=== PATIENT | male | born 1990 | race Caucasian/White ===

== ENCOUNTER 2023-08-04 12:44 | Emergency (ER) | payer OTHER, SELFPAY ==
[2023-08-04 12:57] VITALS: BP 135/86
[2023-08-04 13:26] LABS: INR 0.98; PT 12.8 Sec (11.4-14.6)
[2023-08-04 13:27] LABS: APTT 25.1 Sec (23.4-35.0)
[2023-08-04 13:37] LABS: ALT (SGPT) 58 U/L (0-50); AST (SGOT) 43 U/L (17-59); Albumin 4.8 g/dl (3.5-5.0); Alkaline Phosphatase 70 U/L (38-126); Blood Urea Nitrogen 15 mg/dl (9-20); Calcium 9.5 mg/dl (8.4-10.2); Carbon Dioxide 19 mmol/L (22-30); Chloride 102 mmol/L (98-107); Glucose 129 mg/dl (70-99); Potassium 3.5 mmol/L (3.5-5.1); Sodium 133 mmol/L (135-145); Total Bilirubin 0.7 mg/dl (0.2-1.3); Total Protein 7.4 g/dl (6.3-8.2); eGFR > 60.00
[2023-08-04 13:45] LABS: Troponin I < 0.012 ng/ml
[2023-08-04 14:05] LABS: TSH Reflex To Free T4 1.67 uIU/ml (0.47-4.68)
--- NOTE | 2023-08-04 15:44 | ED.GENMED ---
History of Present Illness
General
Chief Complaint: Heart Rate Problem
Time Seen by Provider: 08/04/23 15:44
Travel History
Have you had any contact with someone who has COVID-19?: No
Do you have any symptoms of coronavirus? Fever > 100 degrees, chills, cough, shortness of breath, sore throat, loss of taste or smell, muscle aches, or headache?: No
History of Present Illness
History of Present Illness:
HPI: The patient was working earlier today and had sensation of heart racing. His watch indicated that he was in A-fib�I did review this and it did not appear to be A-fib to me. He also reports some discomfort just distal to the left groin. He
had sensation of paresthesias in his arms earlier. He did have some associated anxiety as well.
EXAM:
GENERAL: Well appearing in no distress
HEENT: Moist oral mucosa
CARDIOVASCULAR: No murmurs, borderline tachycardic heart rate with regular rhythm, No chest wall tenderness
PULMONARY: No respiratory distress, breath sounds are clear and equal
ABDOMEN: Soft with no peritoneal signs, no tenderness
NEUROLOGIC: Excellent strength all extremities, no coordination deficits
PSYCHIATRIC: Appropriate mental status, normal insight and judgement, appears somewhat anxious
EXTREMITIES: Nontender, no edema, moves all extremities equally, no palpable masses or suggestion for DVT based on physical examination of the left lower extremity
SKIN: No rash, no lesions
ED COURSE:
4:15 PM: I initially evaluated patient
NUMBER AND COMPLEXITY OF PROBLEMS ADDRESSED AT THE ENCOUNTER
� Chronic conditions affecting care: Denies any past medical history
� Acute Exacerbation and/or Progression of Chronic Illness: This is an acute problem
� Differential Diagnosis includes: Anxiety, DVT unlikely, atrial fibrillation not seen on evaluation here thyroid disease, electrolyte abnormality
AMOUNT AND/OR COMPLEXITY OF DATA TO BE REVIEWED AND ANALYZED
� I performed an independent evaluation of and my interpretation is:
EKG: Sinus 103, normal axis, nonspecific ST abnormality, no old to compare QTc is [address]:
X-rays:
Laboratory Studies: Chemistries show a slightly low bicarb of 19, sodium 133, troponin negative, TSH normal, white count high at 13.0
Other:
� Review of other/old records: I look for old records but there is no old records to review in [facility]
� Clinical information was obtained by an independent historian: None needed
� Prescriptions/Medications Considered but not given:
� Further testing considered but not performed:
RISK OF COMPLICATIONS AND/OR MORBIDITY OR MORTALITY OF PATIENT MANAGEMENT
� Social determinants of health affecting care: Lives at home
� Discussion with other providers:
� Escalation of care including admission/observation vs risk of discharge considered: Favor more of an anxiety etiology of presentation as patient is persistently tachycardic and hypertensive. Will try one-time dose of Ativan as
the patient has a ride home. EKG monitoring showed no sign of atrial fibrillation. The patient appears somewhat improved on reassessment at 5:50 PM. Suspect component of anxiety
Phy Exam
Physical Exam
Physical Exam:
See HPI
Course
Orders/Labs/Results
Orders:
Orders
08/04/23 12:59
Electrocardiogram (*1) Urgent
Reason for Study: Heart Failure, Left
EKG- Treatment ONCE
08/04/23 13:07
Comprehensive Metabolic Panel Urgent
Protime/PTT Urgent
TSH Reflex To Free T4 Urgent
Troponin I Urgent
08/04/23 15:45
Add On- LAB Urgent
Tests Added?: cbc w/ diff
08/04/23 15:46
0.9% Sodium Chloride 1000 ml [Nss] 1,000 ml IV BOLUS
08/04/23 15:57
Complete Blood Count/With Diff Urgent
Comment: ADD ON
08/04/23 16:18
Lorazepam [Ativan] 1 mg IV NOW STA
US Periph Venous LOWER Ext LT Urgent
Comment:
Reason For Exam: L groin pain / tachycardia eval for DVT
Abnormal Lab Results
08/04/23 08/04/23
13:07 15:57
WBC 13.0 H 10^3/uL
(4.8-10.8)
MCH 31.6 H pg
(27.0-31.0)
MPV 11.1 H fL
(7.4-10.4)
Abs Immat Gran (auto) 0.1 H 10^3/uL
(0-0.05)
Absolute Neuts (auto) 11.0 H 10^3/uL
(1.4-6.5)
Absolute Lymphs (auto) 1.1 L 10^3/uL
(1.2-3.4)
Absolute Monos (auto) 0.8 H 10^3/uL
(0.1-0.6)
Neutrophils % 84.2 H %
(42.2-75.2)
Lymphocytes % 8.5 L %
(20.5-51.1)
Sodium 133 L mmol/L
(135-145)
Carbon Dioxide 19 L mmol/L
(22-30)
Glucose 129 H mg/dl
(70-99)
ALT 58 H U/L
(0-50)
08/04/23 15:57
08/04/23 13:07
Vital Signs
Initial and Last Documented VS:
Initial Vital Signs
Temp Pulse Resp BP Pulse Ox
98.6 F 109 18 135/86 100
08/04/23 12:57 08/04/23 12:57 08/04/23 12:57 08/04/23 12:57 08/04/23 12:57
Last Documented Vital Signs
Temp Pulse Resp BP Pulse Ox
98.6 F 109 18 135/86 100
08/04/23 12:57 08/04/23 12:57 08/04/23 12:57 08/04/23 12:57 08/04/23 12:57
*Critical Care Note
Total Time (30-74mins, 75-104mins- exclusive of procedures): Not Applicable
ED Attending Note
-
Portions of this chart may have been created with voice recognition software.� Occasional wrong word or��sound alike� substitutions may have occurred due to the inherent limitations of voice recognition software.
Discharge Plan
Departure
Patient Disposition: Home (Routine Discharge)
Date of Disposition: 08/04/23
Time of Disposition: 17:46
Patient with high blood pressure during this ER visit?: Yes
Discharge Problem:
Palpitations
Instructions: Palpitations (DC)
Referrals:
Edgardo Butler MD [Family Provider] -
Stevie Enriquez, [Active] - Follow up in 2-3 days
Activity Restrictions/Additional Instructions:
Your EKG shows no cardiac abnormality other than being slightly fast, thyroid testing and other basic blood work including cardiac numbers were normal. Ultrasound shows no sign of blood clot. I have given you the contact information of a local
events intern to follow-up with. For sleep, you could take [id number] Unisom/doxylamine.
Interventions
Interventions:
*Risk Screen - Suicide Last Done: 08/04/23 12:57
*General Assessment Last Done: 08/04/23 12:57
*Neglect/Abuse Screening Last Done: 08/04/23 12:57
*ED COVID-19 Vaccine History Last Done: 08/04/23 12:57
ED- Cardiac Assessment Last Done: 08/04/23 16:17
ED- Pulmonary Assessment Last Done: 08/04/23 16:17
[2023-08-04 16:00] VITALS: BP 170/79
[2023-08-04] MEDS: NSS 1000 IV (16:06)
[2023-08-04 16:19] LABS: % Basophils 0.3 % (0-2); % Eosinophils 0.1 % (0-6); % Immature Granulocytes 0.4 % (0-0.5); % Lymphocytes 8.5 % (20.5-51.1); % Monocytes 6.5 % (1.7-9.3); % Neutrophils 84.2 % (42.2-75.2); Absolute Immature Granulocytes 0.1 10^3/uL (0-0.05); Absolute Lymphocytes 1.1 10^3/uL (1.2-3.4); Absolute Monocytes 0.8 10^3/uL (0.1-0.6); Hematocrit 45.2 % (39.0-52.0); Hemoglobin 16.5 g/dL (13.0-18.0); Mean Corp Hgb Conc. 36.5 g/dL (33.0-37.0); Mean Corpuscular Hgb 31.6 pg (27.0-31.0); Mean Corpuscular Volume 86.6 fL (80.0-94.0); Mean Platelet Volume 11.1 fL (7.4-10.4); Nucleated Red Blood Cells % 0 % (-); Platelet Count 234 10^3/uL (130-400); Red Blood Cell Count 5.22 10^6/uL (4.70-6.10); Red Cell Dist. Width 12.1 % (11.5-14.5)
[2023-08-04] MEDS: ATIVAN 1 MG IV (16:26)
[2023-08-04 16:27] VITALS: BP 154/99
[2023-08-04 18:00] VITALS: BP 138/80
== END 2023-08-04 18:15 | disposition home or self-care (01) ==
LOC: EMR 12:44
PROVIDERS: Emergency Medicine; EMERGENCY PHYSICIAN Emergency Medicine; FAMILY PHYSICIAN Family Medicine
DX: R00.2 Palpitations (principal); R03.0 Elevated blood-pressure reading, without diagnosis of hypertension
CPT/HCPCS: 99285; 96374; 96361; 80053; 84443; 84484; 85025; 85610; 85730; 93005; 93971

== ENCOUNTER → 2023-09-23 16:10 | Outpatient (REF) | payer OTHER, SELFPAY | LOC: RCS 16:10 | PROVIDERS: ATTENDING PHYSICIAN Internal Medicine Cardiovascular Disease; FAMILY PHYSICIAN Physician Assistant Medical | DX: R00.2 Palpitations (principal) | CPT/HCPCS: 93306 ==